=== PATIENT | female | born 1960 | race Two or more races ===

== ENCOUNTER → 2017-09-20 | Outpatient (CLI) | payer OTHER | END | disposition home or self-care (01) | LOC: CFH 10:12 | PROVIDERS: ATTEND Family Medicine | DX: Z12.31 Encounter for screening mammogram for malignant neoplasm of breast (principal) | CPT/HCPCS: G0202 ==

== ENCOUNTER 2021-03-19 12:52 | Outpatient (CLI) | payer OTHER | END 2021-03-19 23:59 | disposition home or self-care (01) | LOC: CFH 12:52 | PROVIDERS: ATTEND Physician Assistant | DX: Z12.31 Encounter for screening mammogram for malignant neoplasm of breast (principal); R59.0 Localized enlarged lymph nodes | CPT/HCPCS: 77063; 77067 ==